=== PATIENT | male | born 1985 | race Two or more races ===

== ENCOUNTER 2020-04-19 14:11 | Inpatient (IN) | payer OTHER ==
--- NOTE | 2020-04-19 14:21 | ED ---
Psych HPI - General Stated Complaint: Mental health Time Seen by Provider: 04/19/20 14:11 Source: patient, EMS, RN notes reviewed Mode of arrival: EMS - History of Present Illness Initial Comments: This is a 34-year-old male with a history of methamphetamine abuse who states he last used 2 days ago he also states he's had any food or drinking fluids last 2 days clear does have any money who is here by EMS because of suicidal thoughts. No definitive plan. He was demonstrating a flight of ideas per paramedics. He does deny any alcohol use this time he does have a prior history of pneumonia no heart or lung disease otherwise no other medical problems he states. MD Complaint: suicidal ideation - Related Data Allergies Allergy/AdvReac Type Severity Reaction Status Date / Time Penicillins Allergy Nausea & Verified 04/19/20 15:26 Vomiting Review of Systems ROS Statement: Those systems with pertinent positive or pertinent negative responses have been documented in the HPI. ROS Other: All systems not noted in ROS Statement are negative. General Exam - General Exam Comments Initial Comments: This is a well-developed asthenic appearing male who is awake alert and appears be oriented 3 male he has had a flight of ideas. He does demonstrate some rambling speech. General appearance: alert, in no apparent distress Head exam: Present: atraumatic, normocephalic, normal inspection Eye exam: Present: normal appearance, PERRL, EOMI. Absent: scleral icterus, conjunctival injection, periorbital swelling ENT exam: Present: mucous membranes dry Neck exam: Present: normal inspection. Absent: tenderness, meningismus, lymphadenopathy Respiratory exam: Present: normal lung sounds bilaterally. Absent: respiratory distress, wheezes, rales, rhonchi, stridor Cardiovascular Exam: Present: regular rate, normal rhythm, normal heart sounds. Absent: systolic murmur, diastolic murmur, rubs, gallop, clicks GI/Abdominal exam: Present: soft, normal bowel sounds. Absent: distended, tende rness, guarding, rebound, rigid Extremities exam: Present: normal inspection, full ROM, normal capillary refill. Absent: tenderness, pedal edema, joint swelling, calf tenderness Back exam: Present: normal inspection Neurological exam: Present: alert, oriented X3, CN II-XII intact Psychiatric exam: Present: manic, suicidal ideation Skin exam: Present: warm, dry, intact, normal color. Absent: rash Course Vital Signs 04/19/20 14:19 Temperature 98 F Pulse Rate 71 Respiratory 18 Rate Blood Pressure 129/80 O2 Sat by Pulse 95 Oximetry Medical Decision Making - Medical Decision Making Patient does demonstrate evidence of rhabdomyolysis and dehydration. I did discuss case with Dr. George and the patient will be admitted - Lab Data Result diagrams: 04/19/20 14:35 04/19/20 14:35 Lab Results 04/19/20 04/19/20 04/19/20 Range/Units 14:00 14:35 14:35 WBC 10.0 (3.8-10.6) k/uL RBC 5.00 (4.30-5.90) m/uL Hgb 15.6 (13.0-17.5) gm/dL Hct 46.7 (39.0-53.0) % MCV 93.3 (80.0-100.0) fL MCH 31.2 (25.0-35.0) pg MCHC 33.4 (31.0-37.0) g/dL RDW 13.5 (11.5-15.5) % Plt Count 117 L (150-450) k/uL Neutrophils % 81 % Lymphocytes % 11 % Monocytes % 6 % Eosinophils % 1 % Basophils % 0 % Neutrophils # 8.0 H (1.3-7.7) k/uL Lymphocytes # 1.0 (1.0-4.8) k/uL Monocytes # 0.6 (0-1.0) k/uL Eosinophils # 0.1 (0-0.7) k/uL Basophils # 0.0 (0-0.2) k/uL Sodium 140 (137-145) mmol/L Potassium 3.9 (3.5-5.1) mmol/L Chloride 104 (98-107) mmol/L Carbon Dioxide 21 L (22-30) mmol/L Anion Gap 15 mmol/L BUN 21 H (9-20) mg/dL Creatinine 0.99 (0.66-1.25) mg/dL Est GFR (CKD-EPI)AfAm >90 (>60 ml/min/1.73 sqM) Est GFR (CKD-EPI)NonAf >90 (>60 ml/min/1.73 sqM) Glucose 95 (74-99) mg/dL Calcium 9.3 (8.4-10.2) mg/dL Magnesium 2.3 (1.6-2.3) mg/dL Total Bilirubin 2.2 H (0.2-1.3) mg/dL AST 61 H (17-59) U/L ALT 58 H (4-49) U/L Alkaline Phosphatase 60 (38-126) U/L Creatine Kinase 2032 H* (55-170) U/L Total Protein 8.0 (6.3-8.2) g/dL Albumin 5.0 (3.5-5.0) g/dL Urine Opiates Screen Not Detected (NotDetected) Ur Oxycodone Screen Not Detected (NotDetected) Urine Methadone Screen Not Detected (NotDetected) Ur Propoxyphene Screen Not Detected (NotDetected) Ur Barbiturates Screen Not Detected (NotDetected) U Tricyclic Antidepress Not Detected (NotDetected) Ur Phencyclidine Scrn Not Detected (NotDetected) Ur Amphetamines Screen Detected H (NotDetected) U Methamphetamines Scrn Detected H (NotDetected) U Benzodiazepines Scrn Not Detected (NotDetected) Urine Cocaine Screen Detected H (NotDetected) U Marijuana (THC) Screen Detected H (NotDetected) Disposition Clinical Impression: Rhabdomyolysis, Dehydration, Depression, Suicidal ideation, Polysubstance abuse Disposition: ADMITTED IP TO THIS [facility] Condition: Fair Referrals: None,Stated [Primary Care Provider] - 1-2 days
[2020-04-19 15:07] LABS: Basophils % (A) 0 %; Eosinophils # (A) 0.1 k/uL (0-0.7); Eosinophils % (A) 1 %; HCT 46.7 % (39.0-53.0); HGB 15.6 gm/dL (13.0-17.5); Lymphocytes % (A) 11 %; MCH 31.2 pg (25.0-35.0); MCHC 33.4 g/dL (31.0-37.0); MCV 93.3 fL (80.0-100.0); Monocytes # (A) 0.6 k/uL (0-1.0); Monocytes % (A) 6 %; Neutrophils % (A) 81 %; Platelet Count 117 k/uL (150-450); RDW 13.5 % (11.5-15.5)
[2020-04-19 15:09] LABS: ALT 58 U/L (4-49); AST 61 U/L (17-59); African American GFR (CKD) >90 (>60 ml/min/1.73 sqM); Alkaline Phosphatase 60 U/L (38-126); Anion Gap 15 mmol/L; Blood Urea Nitrogen 21 mg/dL (9-20); Calcium 9.3 mg/dL (8.4-10.2); Carbon Dioxide 21 mmol/L (22-30); Chloride 104 mmol/L (98-107); Glucose 95 mg/dL (74-99); Magnesium 2.3 mg/dL (1.6-2.3); Non-African American GFR(CKD) >90 (>60 ml/min/1.73 sqM); Potassium 3.9 mmol/L (3.5-5.1); Sodium 140 mmol/L (137-145); Total Bilirubin 2.2 mg/dL (0.2-1.3)
[2020-04-19 15:16] LABS: Amphetamine Screen,Urine Detected (NotDetected); Cocaine Screen,Urine Detected (NotDetected); Opiate Screen,Urine Not Detected (NotDetected); Phencyclidine Screen,Urine Not Detected (NotDetected); Urn Cannabinoid Scrn Detected (NotDetected)
[2020-04-19 15:17] LABS: Barbiturate Screen,Urine Not Detected (NotDetected); Benzodiazepines Screen,Urine Not Detected (NotDetected); Methadone Screen, Urine Not Detected (NotDetected); Oxycodone Screen, Urine Not Detected (NotDetected); Tricyclic Antidepressant,Urine Not Detected (NotDetected)
[2020-04-19 15:24] LABS: Creatine Kinase 2032 U/L (55-170)
[2020-04-19] MEDS ORDERED: SODIUM CHLORIDE 0.9% 2,000 ML IV ONE (15:27)
[2020-04-19] MEDS ORDERED: NALOXONE 0.4 MG/ML 1 ML VIAL IV PRN (15:45)
[2020-04-19] MEDS ORDERED: cloNIDine HCL 0.1 MG TAB PO PRN (17:10)
--- NOTE | 2020-04-19 17:14 | P.HPIM ---
History of Present Illness H&P Date: 04/19/20 Chief Complaint: Suicidal thoughts This is a 34-year-old male with past medical history significant for polysubstance abuse presented to the emergency room EMS because of suicidal thoughts. Patient was seen by me in the ER. He was awake and alert. He appeared confused. He said that he uses methamphetamine regularly. He also admits to having suicidal thoughts but did not have any particular plans. He said that he's feeling better now. He said that he did not stay for the past few nights. He does not have any other concerns otherwise. Review of Systems Review of system: 14 points review of systems were obtained and were negative except to what were mentioned in the HPI. Past Medical History Additional Past Medical History / Comment(s): ODD, borderline personality History of Any Multi-Drug Resistant Organisms: None Reported Past Surgical History: No Surgical Hx Reported Past Psychological History: ADD/ADHD Past Drug Use History: Cocaine, Marijuana, Methamphetamine Medications and Allergies Home Medications Medication Instructions Recorded Confirmed Type No Known Home Medications 04/19/20 04/19/20 History Allergies Allergy/AdvReac Type Severity Reaction Status Date / Time Penicillins Allergy Nausea & Verified 04/19/20 15:59 Vomiting Physical Exam Vitals: Vital Signs Temp Pulse Resp BP Pulse Ox 04/19/20 14:19 98 F 71 18 129/80 95 Intake and Output 04/19/20 04/19/20 04/19/20 06:59 14:59 22:59 Other: Weight 61.235 kg General: The patient is awake and alert, in no distress Eye: there is normal conjunctiva bilaterally. Neck: The neck is supple, there is no JVD. Cardiovascular: Normal S1-S2, no S3-S4, no murmurs. Respiratory: Lungs clear to auscultation bilaterally Gastrointestinal: Abdomen is soft, nontender Musculoskeletal: There is no pedal edema. Neurological:. Speech is normal. Skin: Skin is warm and dry Results CBC & Chem 7: 04/19/20 14:35 04/19/20 14:35 Labs: Abnormal Lab Results - Last 24 Hours (Table) 04/19/20 04/19/20 04/19/20 Range/Units 14:00 14:35 14:35 Plt Count 117 L (150-450) k/uL Neutrophils # 8.0 H (1.3-7.7) k/uL Carbon Dioxide 21 L (22-30) mmol/L BUN 21 H (9-20) mg/dL Total Bilirubin 2.2 H (0.2-1.3) mg/dL AST 61 H (17-59) U/L ALT 58 H (4-49) U/L Creatine Kinase 2032 H* (55-170) U/L Ur Amphetamines Screen Detected H (NotDetected) U Methamphetamines Scrn Detected H (NotDetected) Urine Cocaine Screen Detected H (NotDetected) U Marijuana (THC) Screen Detected H (NotDetected) Assessment and Plan Assessment: 1. Polysubstance abuse: U tox positive for amphetamine, cocaine, and marijuana. Counseled extensively to quit. 2. Suicidal ideation, denies any thought at this time. Sitter at bedside. Suicidal precaution. Consult psychiatry. 3. Mild rhabdomyolysis, probably secondary to methamphetamine use. Continue normal saline at the 130 mL per hour. Repeat CPK in the morning. 4. Toxo metabolic encephalopathy, secondary to polysubstance abuse. We will continue to monitor.
[2020-04-20] MEDS: SODIUM CHLORIDE 0.9% 1,000 ML IV SCH ×5 (09:47→22:55)
[2020-04-20] MEDS ORDERED: ZIPRASIDONE 20 MG VIAL IM PRN (12:50)
--- NOTE | 2020-04-20 12:50 | P.CN ---
Psychiatric Consult - . Consult date: 04/20/20 Consult:: 04/20/20 12:41 IDENTIFYING DATA: This patient is a 34-year-old male who is currently homeless as his and unemployed HISTORY OF PRESENT ILLNESS: The patient presented to the hospital yesterday via EMS. Patient has a chronic history of methamphetamine abuse and claimed that he last used 2 days ago. Patient apparently according to ER report has not been eating or drinking for the past 2 days and was having suicidal thoughts with no concrete plan. Patient was also apparently having flight of ideas according to the EMS. Patient was admitted to medicine for rhabdomyolysis and dehydration with LFTs that were elevated CK of 2031. Patient also had a UDS which was positive for methamphetamine and cocaine and marijuana. Psychiatry was consulted for suicide ideation and depression. Patient appeared to be irritable, illogical at times and also endorsed paranoia during the interview. He spoke about "running around [employer]" and spoke about walking around [place] for several days as he "had to keep on moving". He claims that he had a "bug on me" that was put on him by his stepdad and he claims that he has been trying to monitor him and "it has been sending pulses to it". Aims also people have been trying to come after him and they were waiting for him in the parking lot to the hospital and he claims that his stepdad hired these people. Patient spoke about a meth binge for the past week and claimed to have fleeting thoughts of suicide at this time however no active plan. Patient is impulsive has poor insight and judgment. At this time patient denies any homical ideations, intent or plan. Patient denies any auditory, visual hallucinations. Patients admits to using methamphetamine for the past week with unknown amount, marijuana daily and also cocaine. He states that he smokes cigarettes daily and drinks occasional alcohol. PAST PSYCHIATRIC HISTORY: Patient has a a history of some form of mental illness however does not know what. Patient claims that he is previously on Adderall Ritalin and Depakote and other psychiatric meds. He said he has had multiple psychiatric admissions and was previously at [facility] however does not remember when. Patient denies any psychiatric outpatient follow-up. He states that he attempted suicide 3 times in the past and spoke about one time where he jabbed himself with a pencil. PAST MEDICAL HISTORY: denies. ALLERGIES: as per EMR. CHEMICAL DEPENDENCY HISTORY: as per HPI. FAMILY PSYCHIATRIC/SUBSTANCE USE HISTORY: He states that one of his uncles committed suicide SOCIAL HISTORY: Patient was born [place] however was raised in [place]. He c laims that he completed up to 10th grade in school and has worked several odd jobs in the past. He states that he is homeless has no kids and is unemployed and . He states that he has a C[employer] third-degree and served approximately 6 years in [employer]. MENTAL STATUS EXAM: General Appearance: Patient appears to be stated age is alert, directable however is paranoid and suspicious. Patient appears to have poor hygiene and grooming wearing hospital gown with poor eye contact. Behavior: Patient is calmly lying in bed without any agitated behavior. Irritable at times. Speech: Patient's speech is fluent and nonpressured. Mood/Affect: Patient reports their mood is "depressed", affect is congruent Suicidality/Homicidality: Patient denies having homicidal ideation intent or plan. He admits to fleeting thoughts of suicide. No concrete plan or intent. Perceptions: Patient denies any visual hallucinations and denies any auditory hallucinations Though content/process: Patient endorses several delusions of persecution and also paranoia. Memory and concentration: AOX3, grossly intact for the purposes of this session. Can spell "WORLD" backwards Judgment and insight: poor/impulsive IMPRESSIONS: Psychosis unspecified, rule out methamphetamine induced psychotic episode Methamphetamine abuse Cocaine abuse Cannabis use disorder Nicotine dependence PLAN: -At this time patient DOES meet criteria for inpatient psychiatric admission. -Would recommend the following medication changes/additions: We'll start Zyprexa 5 mg daily at bedtime for mood stabilization/psychosis. -Continue 1:1 sitter for safety until patient is transferred to the mental health unit -Cannot leave AMA at this time. Patient will need a petition and certification if attempting to leave AMA. -When medically stable, patient is eligible for transfer to a psych bed when available. -Psychiatry will sign off at this point, please contact with any questions. 04/20/20 12:43
--- NOTE | 2020-04-20 15:22 | P.PN ---
Subjective Patient is resting comfortably. No acute events overnight. Objective - Vital Signs Vital signs: Vital Signs Temp 99.0 F 04/20/20 15:00 Pulse 61 04/20/20 15:00 Resp 16 04/20/20 15:00 BP 113/66 04/20/20 15:00 Pulse Ox 98 04/20/20 15:00 Intake & Output 04/19/20 04/20/20 04/20/20 18:59 06:59 18:59 Intake Total 1040 Balance 1040 Weight 61.235 kg Intake: Intake, IV Titration 1040 Amount Sodium Chloride 0.9% 1, 1040 000 ml @ 130 mls/hr IV . [id number] [facility] Rx#:[id number] Other: Voiding Method Toilet Toilet # Voids 1 2 - Exam General: The patient is awake and alert, in no distress Eye: there is normal conjunctiva bilaterally. Neck: The neck is supple, there is no JVD. Cardiovascular: Normal S1-S2, no S3-S4, no murmurs. Respiratory: Lungs clear to auscultation bilaterally Gastrointestinal: Abdomen is soft, nontender Musculoskeletal: There is no pedal edema. Neurological:. Speech is normal. Skin: Skin is warm and dry - Labs CBC & Chem 7: 04/19/20 14:35 04/19/20 14:35 Labs: Abnormal Lab Results - Last 24 Hours (Table) 04/19/20 04/20/20 Range/Units 14:35 07:34 Carbon Dioxide 21 L (22-30) mmol/L BUN 21 H (9-20) mg/dL Total Bilirubin 2.2 H (0.2-1.3) mg/dL AST 61 H (17-59) U/L ALT 58 H (4-49) U/L Creatine Kinase 2032 H* 1148 H* (55-170) U/L Assessment and Plan Assessment: 1. Polysubstance abuse: U tox positive for amphetamine, cocaine, and marijuana. Counseled extensively to quit. 2. Suicidal ideation, denies any thought at this time. Sitter at bedside. Suicidal precaution. Consulted psychiatry. 3. Mild rhabdomyolysis, probably secondary to methamphetamine use. Continue normal saline at the 130 mL per hour. Repeat CPK in the morning. 4. Toxo metabolic encephalopathy, secondary to polysubstance abuse. Resolved Plan to discharge to inpatient psych tomorrow
[2020-04-20] MEDS ORDERED: OLANZapine 5 MG TAB PO SCH (21:00)
[2020-04-21 01:49] VITALS: RESP 16
[2020-04-21] MEDS: SODIUM CHLORIDE 0.9% 1,000 ML IV SCH ×2 (07:17→14:35)
--- NOTE | 2020-04-21 11:04 | P.DS ---
Providers Date of admission: 04/19/20 15:45 Expected date of discharge: 04/21/20 Attending physician: Dustin George MD Consults: 04/19/20 15:46 Consult Physician Routine Consulting Provider: Adal Quiroga Consult Reason/Comments: Suicidal ideation, depression Do you want consulting provider notified?: Yes, Notify in am Primary care physician: Stated None Hospital Course: This is a 34-year-old male who presented to the emergency room with suicidal thoughts and ideation. Patient was evaluated in the ER and admitted to the hospital for further management of his medical problems noted below. 1. Polysubstance abuse: U tox positive for amphetamine, cocaine, and marijuana. Counseled extensively to quit. 2. Suicidal ideation, denies any thought at this time. Sitter at bedside. Suicidal precaution. Consulted psychiatry. 3. Mild rhabdomyolysis, probably secondary to methamphetamine use. Improved with aggressive IV fluid hydration. CPK trending down. 4. Toxo metabolic encephalopathy, secondary to polysubstance abuse. Resolved Patient will be transferred to the psych unit for further management. Patient Condition at Discharge: Fair Plan - Discharge Summary Discharge Rx Participant: No New Discharge Prescriptions: No Action No Known Home Medications Discharge Medication List No Known Home Medications 04/19/20 [History] Follow up Appointment(s)/Referral(s): None,Stated [Primary Care Provider] - 1-2 days Patient Instructions/Handouts: Adult Overdose (ED), Suicide Prevention (DC) Discharge Disposition: TRANSFER TO PSYCH HOSP/UNIT
[2020-04-21 14:34] VITALS: BP 102/62; PULSE 62; TEMP 98.7
== END 2020-04-21 14:40 | DRG 557 ==
LOC: EC 14:11 → 4SSUR 15:45
PROVIDERS: ADMIT Family Medicine; ATTEND Family Medicine
DX: M62.82 Rhabdomyolysis (principal); G93.41 Metabolic encephalopathy; R45.851 Suicidal ideations; Z11.59 Encounter for screening for other viral diseases; F14.10 Cocaine abuse, uncomplicated; F15.10 Other stimulant abuse, uncomplicated; F60.3 Borderline personality disorder; F15.159 Other stimulant abuse with stimulant-induced psychotic disorder, unspecified; F91.3 Oppositional defiant disorder; E86.0 Dehydration; F32.9 Major depressive disorder, single episode, unspecified; F90.9 Attention-deficit hyperactivity disorder, unspecified type; F12.10 Cannabis abuse, uncomplicated; R40.2362 Coma scale, best motor response, obeys commands, at arrival to emergency department; R40.2142 Coma scale, eyes open, spontaneous, at arrival to emergency department; R40.2252 Coma scale, best verbal response, oriented, at arrival to emergency department; Z88.0 Allergy status to penicillin; Z59.0 Homelessness; Z56.0 Unemployment, unspecified
CPT/HCPCS: 36415; 80053; 80306; 82075; 82550; 83735; 85025; 96360; 96361; 99285

== ENCOUNTER 2020-04-21 14:39 | Inpatient (IN) | payer MEDICAID, OTHER ==
[2020-04-21] MEDS ORDERED: ACETAMINOPHEN TAB 325 MG TAB PO PRN (14:50)
[2020-04-21] MEDS ORDERED: MAGNESIUM HYDROXIDE 2,400 MG/10 ML CUP PO PRN (14:50)
[2020-04-21] MEDS ORDERED: MAG HYDROX/AL HYDROX/SIMETH 30 ML CUP PO PRN (14:50)
[2020-04-21] MEDS ORDERED: ZIPRASIDONE 20 MG VIAL IM PRN (14:50)
[2020-04-21] MEDS ORDERED: LORazepam 1 MG TAB PO PRN (14:50)
[2020-04-21] MEDS ORDERED: LORazepam 2 MG/ML INJ IM PRN (14:55)
[2020-04-22 06:26] LABS: Cholesterol 138 mg/dL (<200); HDL Cholesterol 40 mg/dL (40-60); LDL Cholesterol,Calculated 83 mg/dL (0-99); Triglycerides 77 mg/dL (<150)
--- NOTE | 2020-04-22 10:24 | P.HP ---
Psychiatric H&P - . H&P Date: 04/22/20 History & Physical: Allergies Allergy/AdvReac Type Severity Reaction Status Date / Time Penicillins Allergy Nausea & Verified 04/19/20 15:59 Vomiting Vital Signs Temp 98.2 F 04/21/20 17:26 Pulse 58 L 04/21/20 17:26 Resp 18 04/21/20 17:26 BP 121/70 04/21/20 17:26 Pulse Ox 99 04/21/20 17:26 Intake & Output 04/21/20 04/22/20 04/22/20 18:59 06:59 18:59 Weight 66 kg Laboratory Last Values Triglycerides 77 mg/dL (<150) 04/21/20 07:40 Cholesterol 138 mg/dL (<200) 04/21/20 07:40 LDL Cholesterol, Calc 83 mg/dL (0-99) 04/21/20 07:40 HDL Cholesterol 40 mg/dL (40-60) 04/21/20 07:40 04/22/20 10:17 IDENTIFYING DATA: This patient is a 34-year-old male who is currently homeless as his and unemployed HISTORY OF PRESENT ILLNESS: The patient was initially seen for consultation by rewriter "The patient presented to the hospital yesterday via EMS. Patient has a chronic history of methamphetamine abuse and claimed that he last used 2 days ago. Patient apparently according to ER report has not been eating or drinking for the past 2 days and was having suicidal thoughts with no concrete plan. Patient was also apparently having flight of ideas according to the EMS. Patient was admitted to medicine for rhabdomyolysis and dehydration with LFTs that were elevated CK of 2031. Patient also had a UDS which was positive for me thamphetamine and cocaine and marijuana. Psychiatry was consulted for suicide ideation and depression. Patient appeared to be irritable, illogical at times and also endorsed paranoia during the interview. He spoke about "running around crazy" and spoke about walking around [place] for several days as he "had to keep on moving". He claims that he had a "bug on me" that was put on him by his stepdad and he claims that he has been trying to monitor him and "it has been sending pulses to it". claims also people have been trying to come after him and they were waiting for him in the parking lot to the hospital and he claims that his stepdad hired these people. Patient spoke about a meth binge for the past week and claimed to have fleeting thoughts of suicide at this time however no active plan. Patient is impulsive has poor insight and judgment. At this time patient denies any homical ideations, intent or plan. Patient denies any auditory, visual hallucinations. Patients admits to using methamphetamine for the past week with unknown amount, marijuana daily and also cocaine. He states that he smokes cigarettes daily and drinks occasional alcohol." Patient was seen once again today for admission interview and patient appears to be more cooperative today and continues to have poor insight and judgment. He states that he has had no issues so far on the mental health unit in claims that he slept "okay" last night. He claims that he does believe that he is still having delusions and was endorsing paranoia about "people coming after me" and also spoke about legal issues that may be tied into it. He was fairly vague about the paranoia and also spoke about "protecting my people". He was fairly circumstantial/tangential during conversation. He currently denies any suicidal or homicidal ideations intent or plan and denies any auditory or visual hallucinations. PAST PSYCHIATRIC HISTORY: Patient has a a history of some form of mental illness however does not know what. Patient claims that he is previously on Adderall Ritalin and Depakote and other psychiatric meds. He said he has had multiple psychiatric admissions and was previously at [facility] however does not remember when. Patient denies any psychiatric outpatient follow-up. He states that he attempted suicide 3 times in the past and spoke about one time where he jabbed himself with a pencil. PAST MEDICAL HISTORY: denies. ALLERGIES: as per EMR. CHEMICAL DEPENDENCY HISTORY: as per HPI. FAMILY PSYCHIATRIC/SUBSTANCE USE HISTORY: He states that one of his uncles committed suicide SOCIAL HISTORY: Patient was born [place] however was raised in [place]. He claims that he completed up to 10th grade in school and has worked several odd jobs in the past. He states that he is homeless has no kids and is unemployed and . He states that he has a C[employer] third-degree and served approximately 6 years in [employer]. MENTAL STATUS EXAM: General Appearance: Patient appears to be stated age is alert, directable however is paranoid. Patient appears to have poor hygiene and grooming wearing hospital gown with poor eye contact. Behavior: Patient is calmly lying in bed without any agitated behavior. More cooperative. Paranoid at times. Speech: Patient's speech is fluent and nonpressured. Mood/Affect: Patient reports their mood is "alright", affect is congruent Suicidality/Homicidality: Patient denies having homicidal ideation intent or plan. He admits to fleeting thoughts of suicide. No concrete plan or intent. Perceptions: Patient denies any visual hallucinations and denies any auditory hallucinations Though content/process: Patient endorses several delusions of persecution and also paranoia. Vague and guarded. Memory and concentration: AOX3, grossly intact for the purposes of this session. Can spell "WORLD" backwards Judgment and insight: poor/impulsive, mildly improving. STRENGTHS/WEAKNESSES: strength is that patient is resilient. Weakness is that patient has poor judgment and abuses polysubstances. INTELLECT: Below average IMPRESSIONS: Psychosis unspecified, rule out methamphetamine induced psychotic episode Methamphetamine abuse Cocaine abuse Cannabis use disorder Nicotine dependence PLAN: -Patient is admitted under voluntary status to MHU for stabilization of psychiatric symptoms and safety. Patient signed adult voluntary form and medicat ion consent and is placed in patient's chart. -Medications : Will start patient on Zyprexa 5 mg nightly for mood stabilization/psychosis. -Ativan and Geodon PRN for agitation/aggression -Patient was counselled on substance abuse and desired to cut back on use -Patient was informed of the risks, benefits and side effects of the medication and patient verbally consented to taking the medications. Patient signed med consent form and was placed in chart. -Internal Medicine consult to perform medical evaluation and physical. -NRT - nicotine patch -SW on board for discharge planning. Encourage patient to participate in groups to work on coping skills. Manager Management spoke with patient about the options for substance use treatment and patient is currently declining inpatient rehab. Likely discharge in 2-3 days. 04/22/20 10:18 04/22/20 10:23
[2020-04-22] MEDS: NICOTINE 14MG/24HR PATCH TRANSDERM SCH (11:36)
[2020-04-22 11:52] LABS: Hemoglobin A1C 5.3 % (4.0-6.0)
--- NOTE | 2020-04-22 11:52 | P.CONS ---
History of Present Illness - Reason for Consult Consult date: 04/22/20 - History of Present Illness This is a 34-year-old male who presented to the hospital originally with suicidal thoughts and was very agitated and intoxicated with methamphetamine. Urine toxicology screen showed methamphetamine, cocaine, and marijuana. Patient was also noted to have mild rhabdomyolysis and was admitted to the medical floor for aggressive IV fluid hydration. His CPK was trending down. He was eventual ly transferred to the psych unit for further management. He is currently awake and alert. He denies any suicidal thoughts at this time. I was asked to see him for medical management. Patient himself does not have any complaints. Review of Systems Review of system: 14 points review of systems were obtained and were negative except to what were mentioned in the HPI. Past Medical History Additional Past Medical History / Comment(s): ODD, borderline personality History of Any Multi-Drug Resistant Organisms: None Reported Past Surgical History: No Surgical Hx Reported Past Psychological History: ADD/ADHD Past Drug Use History: Cocaine, Marijuana, Methamphetamine - Past Family History Father Family Medical History: No Reported History Medications and Allergies Home Medications Medication Instructions Recorded Confirmed Type No Known Home Medications 04/19/20 04/19/20 History Allergies Allergy/AdvReac Type Severity Reaction Status Date / Time Penicillins Allergy Nausea & Verified 04/19/20 15:59 Vomiting Physical Exam Vitals: Vital Signs Temp Pulse Resp BP Pulse Ox 04/21/20 17:26 98.2 F 58 L 18 121/70 99 04/21/20 15:28 0 F L Intake and Output 04/21/20 04/22/20 04/22/20 22:59 06:59 14:59 Other: Weight 66 kg General: The patient is awake and alert, in no distress Eye: there is normal conjunctiva bilaterally. Neck: The neck is supple, there is no JVD. Cardiovascular: Normal S1-S2, no S3-S4, no murmurs. Respiratory: Lungs clear to auscultation bilaterally Gastrointestinal: Abdomen is soft, nontender Musculoskeletal: There is no pedal edema. Neurological:. Speech is normal. Skin: Skin is warm and dry Assessment and Plan Assessment: 1. Suicidal ideation with underlying depression, managed by psychiatry 2. Polysubstance abuse including methamphetamine, cocaine, and marijuana, counseled extensively to quit 3. Mild rhabdomyolysis improved with aggressive IV fluid hydration Thank you for the consultation. We will follow up on him on as-needed basis.
[2020-04-22] MEDS ORDERED: OLANZapine 5 MG TAB PO SCH (21:00)
[2020-04-23 07:01] VITALS: RESP 16
--- NOTE | 2020-04-23 11:25 | P.PN ---
Progress Note - Text Progress Note Date: 04/23/20 Interval History: Patient was seen laying down in his bed this morning and was directable and ag reeable to speak with fiction writer. Patient claims that he feels tired this morning however did wake up for breakfast. He appears to be somewhat lethargic and believe that the medication is making him too tired and asked fiction writer to have it switched. Patient is agreeable to take Abilify by mouth today. He claims that his mood is "a bit better" and states that he feels less irritable today. He did state that he went to some groups. He was not preoccupied with paranoia today and was more directable and appropriately during conversation. He states that he slept throughout the night and has a fair appetite. At this time patient denies any suicidal or homical ideations, intent or plan. Patient denies any auditory, visual hallucinations and denies any paranoia or delusions. Patient has been compliant with his medications. Mental Status Exam: General Appearance: Patient appears to be stated age is lethargic, directable and less paranoid today. Patient appears to have improving hygiene and grooming. Behavior: Patient is calmly lying in bed without any agitated behavior. More cooperative today Speech: Patient's speech is fluent and nonpressured. Mood/Affect: Patient reports their mood is "a bit better", affect is congruent and constricted Suicidality/Homicidality: Patient denies having homicidal ideation intent or plan. He admits to fleeting thoughts of suicide. No concrete plan or intent. Perceptions: Patient denies any visual hallucinations and denies any auditory hallucinations Though content/process: Patient endorsing less paranoia today. [place]. Logical. Memory and concentration: AOX3, grossly intact for the purposes of this session. Judgment and insight: poor, mildly improving. Assessment Psychosis unspecified, rule out methamphetamine induced psychotic episode Methamphetamine abuse Cocaine abuse Cannabis use disorder Nicotine dependence Plan: -Patient continues to meet criteria for inpatient psychiatric admission for symptom stabilization and safety. Patient has signed adult voluntary form and medication consent and was placed in patient's chart. -Medications: We'll discontinue Zyprexa due to excessive sedation. Patient is agreeable to start Abilify 5 mg by mouth today for mood stabilization/psychosis. -When necessary Ativan and Geodon for agitation/aggression. -NRT - nicotine patch -SW on board for discharge planning. Encouraged the patient to participate in milieu. We'll continue looking into options for substance use treatment versus [facility] versus discharge to family/friends home. Likely discharge in 1-2 days.
[2020-04-23] MEDS: NICOTINE 14MG/24HR PATCH TRANSDERM SCH (12:04)
[2020-04-23] MEDS: ARIPiprazole 5 MG TAB PO SCH (12:06)
[2020-04-24 06:54] VITALS: PULSE 61
[2020-04-24] MEDS: ARIPiprazole 5 MG TAB PO SCH (08:17)
[2020-04-24] MEDS: NICOTINE 14MG/24HR PATCH TRANSDERM SCH (08:17)
--- NOTE | 2020-04-24 11:16 | P.PN ---
Progress Note - Text Progress Note Date: 04/24/20 Interval History: Patient was seen after speaking on the phones this morning and was directable and agreeable to speak with filing writer. Patient appeared to be more appropriate and less lethargic this morning. He states that he's been trying to go to groups and participate as best as he can. He claims that he is coming to realization that most of the "meth delusions" he was having and paranoia was related to his methamphetamine use and states that she is trying to "apple picking supervisor all the pieces". He claims that he is trying to speak with people in his family and other friends to see if he can stay with them. He states that "the reality is on homeless and I don't know what to do". He appears to be less irritable today and have improvement in his insight and judgment. He claims that he wants to stay away from methamphetamine. He is agreeable to continue taking Abilify and claims it is helping with his mood and anxiety. He states that he was able to sleep throughout the night and has a fair appetite. At this time patient denies any suicidal or homical ideations, intent or plan. Patient denies any auditory, visual hallucinations and denies any paranoia or delusions. Patient has been compliant with his medications. Mental Status Exam: General Appearance: Patient appears to be stated age is lethargic, directable and less paranoid today. Patient appears to have improving hygiene and grooming. Behavior: Patient is calmly lying in bed without any agitated behavior. More cooperative today Speech: Patient's speech is fluent and nonpressured. Mood/Affect: Patient reports their mood is "better", affect is congruent and constricted Suicidality/Homicidality: Patient denies having homicidal ideation intent or plan. He admits to fleeting thoughts of suicide. No concrete plan or intent. Perceptions: Patient denies any visual hallucinations and denies any auditory hallucinations Though content/process: Improvement in paranoia and delusions. [place]. Logical. Goal oriented. Memory and concentration: AOX3, grossly intact for the purposes of this session. Judgment and insight: mildly improving. Assessment Psychosis unspecified, rule out methamphetamine induced psychotic episode Methamphetamine abuse Cocaine abuse Cannabis use disorder Nicotine dependence Plan: -Patient continues to meet criteria for inpatient psychiatric admission for symptom stabilization and safety. Patient has signed adult voluntary form and medication consent and was placed in patient's chart. -Medications: Continue with Abilify 5 mg by mouth today for mood stabilization/psychosis. -When necessary Ativan and Geodon for agitation/aggression. -NRT - nicotine patch -SW on board for discharge planning. Encouraged the patient to participate in milieu. At this time patient is refusing to go to inpatient substance rehab and will be either discharged to halfway versus friends/family home likely discharge tomorrow.
[2020-04-25 06:47] VITALS: BP 108/55; TEMP 98.3
[2020-04-25] MEDS: ARIPiprazole 5 MG TAB PO SCH (08:00)
[2020-04-25] MEDS: NICOTINE 14MG/24HR PATCH TRANSDERM SCH (08:52)
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
== END 2020-04-25 13:06 | disposition home or self-care (01) | DRG 885 ==
LOC: 3MHU 14:39
PROVIDERS: ADMIT Psychiatry & Neurology Psychiatry; ATTEND Psychiatry & Neurology Psychiatry
DX: F29 Unspecified psychosis not due to a substance or known physiological condition (principal); M62.82 Rhabdomyolysis; R45.851 Suicidal ideations; E86.0 Dehydration; F12.10 Cannabis abuse, uncomplicated; F14.10 Cocaine abuse, uncomplicated; F15.129 Other stimulant abuse with intoxication, unspecified; F17.210 Nicotine dependence, cigarettes, uncomplicated; F22 Delusional disorders; F32.9 Major depressive disorder, single episode, unspecified; F41.9 Anxiety disorder, unspecified; F60.3 Borderline personality disorder; Z59.0 Homelessness; Z91.5 Personal history of self-harm; Z63.5 Disruption of family by separation and divorce; F90.9 Attention-deficit hyperactivity disorder, unspecified type
CPT/HCPCS: 80061; 83036